=== PATIENT | female | born 1960 ===

== ENCOUNTER 2016-10-27 10:02 | Outpatient (CLI) | payer MEDICARE ==
--- NOTE | 2016-10-27 14:19 | Mammography Report ---
BONE DEXA:10/27/16 10:02:00 CLINICAL: Personal history of steroid therapy. Post menopausal. COMPARISON: None. TECHNIQUE: Two site bone DEXA performed on an Hologic scanner. FINDINGS: The average BMD of the lumbar spine L1-L4 is 0.920g/cm squared with a T-score of -2.1 and a Z-score of -1.0. The average BMD of the left hip is 0.896g/cm squared with a T-score of -0.9 and a Z-score of -0.4. IMPRESSION: WHO classification: Osteopenia with increased fracture risk based on both spine and left hip measurements. RECOMMENDATION: Clinical correlation and routine screening. DEFINITIONS: BMD = Bone Mineral Density T-score = BMD related to mean peak bone mass of young adult (mean expressed in Standard Deviation) Z-score = Age matched BMD expressed in SD World Health Organization (WHO) Diagnostic Criteria Normal T-score > -1 SD Osteopenia T-score between -1 and -2.4 SD Osteoporosis T-score -2.5 SD or below NOTE: BMD is not the only risk factor for fracture; also consider factors such as the patient's age, risk of falling, previous osteoporotic fracture, family history of osteoporotic fractures, current smoker, and low body weight. Z-scores are not calculated if >80 years of age.
== END 2016-10-27 10:03 | disposition home or self-care (01) ==
LOC: SPVWC 10:02
PROVIDERS: ATTEND Family Medicine
DX: M85.88 Other specified disorders of bone density and structure, other site (principal); Z92.241 Personal history of systemic steroid therapy; Z78.0 Asymptomatic menopausal state
CPT/HCPCS: 77080